=== PATIENT | female | born 1985 | race Caucasian/White ===

== ENCOUNTER 2022-10-14 08:56 | Outpatient (CLI) | payer OTHER ==
[~2022-10-14 08:56] MED LIST: GADOBUTROL 10 MMOL/10 ML VIAL ONE
[2022-10-14] MEDS ORDERED: GADOBUTROL 10 MMOL/10 ML VIAL IVP ONE (10:12)
--- NOTE | 2022-10-15 09:12 | MRI Report ---
PROCEDURE: MRI of the brain and orbits with and without contrast INDICATIONS: DIPLOPIA TECHNIQUE: Noncontrast sagittal T1 spin echo, axial FLAIR, axial gradient echo, axial diffusion and ADC acquired through the brain. Coronal STIR, thin-slice axial T1 spin echo through the orbits. Aft er the administration of contrast, thin slice axial and coronal T1 spin echo with fat saturation thro ugh the orbits, axial T1 spin echo with fat saturation through the brain. COMPARISON: None. FINDINGS: Image quality: Excellent. Orbits: Globes are symmetrical. The optic nerves are normal in size, without abnormal signal or enh ancement. No retrobulbar masses or fat abnormalities. The extra-ocular muscles are normal and symme tric in appearance. Lacrimal glands are normal. Optic chiasm is normal. Periorbital soft tissues a ppear normal. CSF spaces: Ventricles are normal in size and shape. Basal cisterns are patent. No extra-axial flu id collections. Brain: No intracranial bleeds or mass effects. No abnormal intracranial enhancement. Hamilton-white ma tter interface is intact. Diffusion weighted images demonstrate no acute infarct. Pituitary gland a ppears normal, without sellar or suprasellar masses. Brainstem appears normal. Normal intravascular flow voids are present. Skull and face: Calvarial marrow is normal in signal. Sinuses: Bilateral maxillary sinus mucosal thickening with retention cysts measuring up to 1.6 cm it. Mucosal thickening noted in the right ethmoid and frontal sinus as well. IMPRESSION: 1. Normal MRI of the brain and orbits with and without contrast. 2. Bilateral maxillary and right ethmoid mucosal sinus disease Reviewed by: Chaparro Felix MD on 10/15/2022 8:11 AM [facility] Approved by: Chaparro Felix MD on 10/15/2022 8:11 AM [facility] Station ID: [id number]
== END 2022-10-14 08:57 | disposition home or self-care (01) ==
LOC: DI 08:56
PROVIDERS: ATTEND Ophthalmology
DX: H53.2 Diplopia (principal)
CPT/HCPCS: 70543; A9585